=== PATIENT | male | born 2005 | race Caucasian/White ===

== ENCOUNTER 2025-03-30 11:57 | Emergency (ER) | payer OTHER, SELFPAY ==
[2025-03-30 12:21] VITALS: BP 166/113; PULSE 85; RESP 18; TEMP 36.6; O2SAT 100; BMI 21.7
[2025-03-30 12:36] LABS: Microscopic, Urine URINE MICROSCOPIC (MICROSCOPIC)
[2025-03-30 12:40] LABS: Appearance,Urine CLEAR (Clear); Blood, Urine Negative (Negative); Color,Urine YELLOW (Yellow); Glucose,Urine (UA) Negative (Negative); Ketones,Urine 2+ (Negative); Leukocyte Esterase,Urine Negative (Negative); Nitrate,Urine Negative (Negative); Protein,Urine Negative (Negative); Urobilinogen,Urine 0.2 EU/dl (0.2)
[2025-03-30 12:49] LABS: Bilirubin,Urine 1+ (Negative)
[2025-03-30 13:00] LABS: Bacteria,Urine Trace /lpf
--- NOTE | 2025-03-30 13:01 | [facility].EDGENADL ---
Discharge Plan Disposition Patient Disposition: Home, Self-Care Condition: Good Referrals Follow up/Referrals: Mir Martin PA [Primary Care Provider] - See instructions Rashid Carrillo II, MD [Staff Physician] - See instructions Jeffery Fernandez MD [Staff Physician] - See instructions Activity Restrictions/Add. Instructions Additional Instructions/Restrictions: As we discussed we were unable to identify any serious or life-threatening condition today to explain your symptoms. I recommend close follow-up with your PCP for further workup. I have recommended both gastroenterology as well as cardiology physicians. You may call for your appointment. If you have any persistent new or worsening signs or symptoms follow-up with your PCP or return to the ER as needed. Clinical Impressions Clinical Impression: Chest pain, Abdominal pain, Unintended weight loss Stand Alone Forms Stand Alone Forms: Work/School Release Instructions Patient Instructions: DI for Acute Abdominal Pain Print Language Print Language: [place] Discharge ED Provider: Taran Kaufman Adult HPI <ENA Smith - Last Filed: 03/30/25 21:09> General Chief complaint: Abdominal Pain Stated complaint: Severe abd. pain, weight loss Time Seen by Provider: 03/30/25 13:01 Mode of Arrival: Ambulatory Source of Information: Patient Description of Symptoms (Recalled from ER Triage Doc. by RN): Pt presents for evaluation of multiple complaints. Pt states he has had right side to mid abdominal pain, nausea, extreme fatigue, and weight loss. Pt states he has lost over 60-70# in 2 months. Pt states he has been having constipation History of Present Illness HPI narrative: Patient presents for evaluation of chest pain abdominal pain and unintentional weight loss. Patient states that he has had lower mid chest pain for the last 3 days along with abdominal pain for the last month. Additionally patient states that he is lost 60 to 70 pounds in 1 to 2 months. He has a referral to gastroenterology and with his PCP but has not yet seen them for these problems. Patient states his abdominal pain is similar to when he had a gallbladder attack but is without gallbladder now as he has had a cholecystectomy. He denies any shortness of breath fever chills hemoptysis hematochezia melena nausea vomiting or diarrhea hematuria dysuria. He his no chronic medical conditions and is on no home medicines does not take any [id number] medications. Related Data Allergies Allergy/AdvReac Type Severity Reaction Status Date / Time amoxicillin Allergy Anaphylaxis Verified 03/30/25 12:26 [facility] <ENA Smith - Last Filed: 03/30/25 21:09> [facility] Disclaimer: The information contained in this section may have been updated after the patient was seen, as this information can be updated by other users. Social History Smoking Status: Current every day smoker alcohol intake: never current occupational status: employed Travel in the last 8 weeks?: None <ENA Smith - Last Filed: 03/30/25 21:09> ROS Obtained: Yes Systems reviewed as appropriate & no additional complaints except as documented Physical Exam <ENA Smith - Last Filed: 03/30/25 21:09> General General appearance: alert and in no apparent distress Respiratory Respiratory exam: Present normal lung sounds bilaterally Cardiovascular Cardiovascular exam: Present regular rate Neurological Exam Neurological exam: Present alert and oriented X3 Medical Decision Making <ENA Smith - Last Filed: 03/30/25 21:09> Medical Records Medical records reviewed: Yes I reviewed the patient's medical records. Screening: Per USPSTF and CDC recommendations, given the prevalence of disease in our region, it is our hospital?s policy to screen for HIV and viral Hepatitis for all patients aged 18 and over and those with ongoing risk factors. Richard Inquiry Pt receiving controlled substance: No Vital Signs: 03/30/25 12:21 03/30/25 15:38 Temperature 98 F 98.3 F Temperature Source Temporal Artery Scan Oral Pulse Rate 61 Pulse Rate [Right] 85 Respiratory Rate 18 16 Blood Pressure 140/79 Blood Pressure [Right Arm] 166/113 H Blood Pressure Mean [Right Arm] 130 Blood Pressure Source Automatic Cuff Blood Pressure Source [Right Arm] Automatic Cuff Blood Pressure Position Sitting Blood Pressure Position [Right Arm] Sitting 02 Sat by Pulse Oximetry 100 Oxygen Delivery Method Room Air Room Air Lab Data Lab results reviewed: Yes I reviewed the patient's lab results. Lab Results 03/30/25 12:32: Urine Color Yellow, Urine Appearance Clear, Urine pH 6.0, Ur Specific [place] 1.020, Urine Protein Negative, Urine Glucose (UA) Negative, Urine Ketones 2+, Urine Blood Negative, Urine Nitrate Negative, Urine Bilirubin 1+ A, Urine Urobilinogen 0.2, Ur Leukocyte Esterase Negative, Urine RBC None, Urine WBC None, Ur Squamous Epith Cells None, Urine Bacteria Trace 03/30/25 13:50: WBC 11.0, RBC 5.78, Hgb 17.0, Hct 47.4, MCV 82.0, MCH 29.4, MCHC 35.9 H, RDW 11.9, Plt Count 278, MPV 9.7, Neut % (Auto) 78.4, Lymph % (Auto) 14.2, [place] % (Auto) 5.2, Eos % (Auto) 1.4, Baso % (Auto) 0.5, Neut # (Auto) 8.6 H, Lymph # (Auto) 1.6, [place] # (Auto) 0.6, Eos # (Auto) 0.2, Baso # (Auto) 0.1, ESR 3, Sodium 138, Potassium 3.6, Chloride 105, Carbon Dioxide 27, Anion Gap 9.6, BUN 12, Creatinine 1.00, Estimated Creat Clear 115, Estimated GFR 96, Est GFR ( Amer) 116, Glucose 106 H, Calcium 9.8, Magnesium 2.5 H, Total Bilirubin 3.8 H, AST 28, ALT 30, Alkaline Phosphatase 75, Troponin I < 0.01, C-Reactive Protein 80.4 H, Total Protein 7.7, Albumin 4.9, Globulin 2.8, Albumin/Globulin Ratio 1.8, Lipase 66, Procalcitonin 0.151, TSH 0.57, Free T4 Index 3.1 L, Thyroxine (T4) 8.8, T3 Uptake 35 03/30/25 13:50 03/30/25 13:50 Orders (Tests/Meds): ED MEDICATIONS Discontinued Medications Generic Name Dose Route Start Last Admin Trade Name Freq PRN Reason Stop Dose Admin Iopamidol 75 ml 03/30/25 14:27 03/30/25 14:27 Iopamidol-370 (76%);100ml Bottle IV 03/30/25 14:28 75 ml ONCE ONE Administration Sodium Chloride 10 ml 03/30/25 14:27 03/30/25 14:27 Sodium Chloride 0.9% 10ml Syr (Rad Only) IV 03/30/25 14:28 10 ml ONCE ONE Administration ORDERS Category Date Time Status CT abdomen pelvis w con Stat Cat Scan 03/30/25 13:21 Completed CBC w/Auto Diff [Complete Blood Count Auto Diff] Stat Lab 03/30/25 13:50 Completed CMP [Comprehensive Metabolic Panel] Stat Lab 03/30/25 13:50 Completed CRP [C-Reactive Protein] Stat Lab 03/30/25 13:50 Completed ESR [Erythrocyte Sedimentation Rate] Stat Lab 03/30/25 13:50 Completed Lipase Stat Lab 03/30/25 13:50 Completed Magnesium Stat Lab 03/30/25 13:50 Completed Procalcitonin Stat Lab 03/30/25 13:50 Completed Thyroid Panel Stat Lab 03/30/25 13:50 Completed Trop I [Troponin I] Stat Lab 03/30/25 13:50 Completed Urinalysis and Microscopic Stat Lab 03/30/25 12:32 Completed Medical Decision Narrative: In summary patient is a 19-year-old male who presents to the emergency department for evaluation of 3 days of chest pain and 1 month of abdominal pain and unintentional weight loss. Patient is hemodynamically stable with a blood pressure 166/113 heart rate 85 normal sinus rhythm on bedside monitor breathing 18 times a minute satting at 100% room air upon arrival, afebrile at 98. Physical exam is remarkable for a well-nourished well-developed 19-year-old gentleman who currently is in no acute distress. Breath sounds clear and equal bilateral to the bases without a tissue sounds cardiovascular S1-S2 regular rate and rhythm without murmurs gallops rubs or thrills. Abdomen soft with mild tenderness in the right upper quadrant but no rebound or guarding no rigidity masses on palpation. Bowel sounds normal active.. Differential diagnosis includes ACS versus bowel obstruction versus pancreatitis versus constipation versus gastroenteritis versus blood dyscrasia versus neoplastic process etc. Initial workup will be conducted with hematologic labs twelve-lead EKG CT scan abdomen pelvis. Initial interventions include would include crystalloid bolus intolerant on Toradol however patient is hemodynamically stable thus bolus deferred and patient has had Tylenol and ibuprofen today prior to arrival thus that is also deferred for now. Initial workup reviewed by me and his hematologic labs significant for normal white count normal H&H with no neutrophilic shift, chemistries significant for, magnesium of 2.5 and undetected troponin at 0.01 a CRP of 80.4 a sed rate of 3 bland urinalysis in my informal interpretation of his CT scan abdomen pelvis reveals no abnormal processes however patient does have a large stool burden but no bowel dilation or stranding or free air prior to radiology read. Please see final read for formal interpretation.. Upon repeat evaluation I had a shared decision making with the patient regarding his BOWENS and while we have diagnostic uncertainty as to his exact cause we revealed no serious or life-threatening conditions today. I offered referral to gastroenterology and cardiology however patient already has appointment scheduled and plans to keep those. He will follow-up closely with his PCP if he has continued new or worsening signs or symptoms or return to the ER as needed.. <Taran Kaufman MD - Last Filed: 03/30/25 23:29> Vital Signs: 03/30/25 12:21 03/30/25 15:38 Temperature 98 F 98.3 F Temperature Source Temporal Artery Scan Oral Pulse Rate 61 Pulse Rate [Right] 85 Respiratory Rate 18 16 Blood Pressure 140/79 Blood Pressure [Right Arm] 166/113 H Blood Pressure Mean [Right Arm] 130 Blood Pressure Source Automatic Cuff Blood Pressure Source [Right Arm] Automatic Cuff Blood Pressure Position Sitting Blood Pressure Position [Right Arm] Sitting 02 Sat by Pulse Oximetry 100 Oxygen Delivery Method Room Air Room Air Lab Data Lab Results 03/30/25 12:32: Urine Color Yellow, Urine Appearance Clear, Urine pH 6.0, Ur Specific [place] 1.020, Urine Protein Negative, Urine Glucose (UA) Negative, Urine Ketones 2+, Urine Blood Negative, Urine Nitrate Negative, Urine Bilirubin 1+ A, Urine Urobilinogen 0.2, Ur Leukocyte Esterase Negative, Urine RBC None, Urine WBC None, Ur Squamous Epith Cells None, Urine Bacteria Trace 03/30/25 13:50: WBC 11.0, RBC 5.78, Hgb 17.0, Hct 47.4, MCV 82.0, MCH 29.4, MCHC 35.9 H, RDW 11.9, Plt Count 278, MPV 9.7, Neut % (Auto) 78.4, Lymph % (Auto) 14.2, [place] % (Auto) 5.2, Eos % (Auto) 1.4, Baso % (Auto) 0.5, Neut # (Auto) 8.6 H, Lymph # (Auto) 1.6, [place] # (Auto) 0.6, Eos # (Auto) 0.2, Baso # (Auto) 0.1, ESR 3, Sodium 138, Potassium 3.6, Chloride 105, Carbon Dioxide 27, Anion Gap 9.6, BUN 12, Creatinine 1.00, Estimated Creat Clear 115, Estimated GFR 96, Est GFR ( Amer) 116, Glucose 106 H, Calcium 9.8, Magnesium 2.5 H, Total Bilirubin 3.8 H, AST 28, ALT 30, Alkaline Phosphatase 75, Troponin I < 0.01, C-Reactive Protein 80.4 H, Total Protein 7.7, Albumin 4.9, Globulin 2.8, Albumin/Globulin Ratio 1.8, Lipase 66, Procalcitonin 0.151, TSH 0.57, Free T4 Index 3.1 L, Thyroxine (T4) 8.8, T3 Uptake 35 Orders (Tests/Meds): ED MEDICATIONS Discontinued Medications Generic Name Dose Route Start Last Admin Trade Name Freq PRN Reason Stop Dose Admin Iopamidol 75 ml 03/30/25 14:27 03/30/25 14:27 Iopamidol-370 (76%);100ml Bottle IV 03/30/25 14:28 75 ml ONCE ONE Administration Sodium Chloride 10 ml 03/30/25 14:27 03/30/25 14:27 Sodium Chloride 0.9% 10ml Syr (Rad Only) IV 03/30/25 14:28 10 ml ONCE ONE Administration ORDERS Category Date Time Status CT abdomen pelvis w con Stat Cat Scan 03/30/25 13:21 Completed CBC w/Auto Diff [Complete Blood Count Auto Diff] Stat Lab 03/30/25 13:50 Completed CMP [Comprehensive Metabolic Panel] Stat Lab 03/30/25 13:50 Completed CRP [C-Reactive Protein] Stat Lab 03/30/25 13:50 Completed ESR [Erythrocyte Sedimentation Rate] Stat Lab 03/30/25 13:50 Completed Lipase Stat Lab 03/30/25 13:50 Completed Magnesium Stat Lab 03/30/25 13:50 Completed Procalcitonin Stat Lab 03/30/25 13:50 Completed Thyroid Panel Stat Lab 03/30/25 13:50 Completed Trop I [Troponin I] Stat Lab 03/30/25 13:50 Completed Urinalysis and Microscopic Stat Lab 03/30/25 12:32 Completed Medical Decision Narrative: In summary patient is a 19-year-old male who presents to the emergency department for evaluation of 3 days of chest pain and 1 month of abdominal pain and unintentional weight loss. Patient is hemodynamically stable with a blood pressure 166/113 heart rate 85 normal sinus rhythm on bedside monitor breathing 18 times a minute satting at 100% room air upon arrival, afebrile at 98. Physical exam is remarkable for a well-nourished well-developed 19-year-old gentleman who currently is in no acute distress. Breath sounds clear and equal bilateral to the bases without a tissue sounds cardiovascular S1-S2 regular rate and rhythm without murmurs gallops rubs or thrills. Abdomen soft with mild tenderness in the right upper quadrant but no rebound or guarding no rigidity masses on palpation. Bowel sounds normal active.. Differential diagnosis includes ACS versus bowel obstruction versus pancreatitis versus constipation versus gastroenteritis versus blood dyscrasia versus neoplastic process etc. Initial workup will be conducted with hematologic labs twelve-lead EKG CT scan abdomen pelvis. Initial interventions include would include crystalloid bolus intolerant on Toradol however patient is hemodynamically stable thus bolus deferred and patient has had Tylenol and ibuprofen today prior to arrival thus that is also deferred for now. Initial workup reviewed by me and his hematologic labs significant for normal white count normal H&H with no neutrophilic shift, chemistries significant for, magnesium of 2.5 and undetected troponin at 0.01 a CRP of 80.4 a sed rate of 3 bland urinalysis in my informal interpretation of his CT scan abdomen pelvis reveals no abnormal processes however patient does have a large stool burden but no bowel dilation or stranding or free air prior to radiology read. Please see final read for formal interpretation.. Upon repeat evaluation I had a shared decision making with the patient regarding his BOWENS and while we have diagnostic uncertainty as to his exact cause we revealed no serious or life-threatening conditions today. I offered referral to gastroenterology and cardiology however patient already has appointment scheduled and plans to keep those. He will follow-up closely with his PCP if he has continued new or worsening signs or symptoms or return to the ER as needed. I was consulted by the DANILO, and we discussed the complexity of the problems being addressed. I approve the treatment and management plan for this patient's care in the emergency department, thus performing a substantive portion of the medical decision making. Taran Kaufman MD Critical Care <ENA Smith - Last Filed: 03/30/25 21:09> Critical Care Time Critical Care Time: No
--- NOTE | 2025-03-30 13:21 | CT_ITS ---
FINAL REPORT TECHNIQUE: IV contrast enhanced exam This study was performed with techniques to keep radiation doses as low as reasonably achievable, (ALARA). Individualized dose reduction techniques using automated exposure control or adjustment of mA and/or kV according to the patient's size were employed. CLINICAL HISTORY: Abdominal pain and weight loss COMPARISON: None FINDINGS: CT ABDOMEN PELVIS WITH CONTRAST: Abdomen: The gallbladder has been surgically resected. Liver has an unremarkable CT appearance. The spleen, pancreas and adrenal glands are unremarkable. Kidneys show no mass or obstruction. No abdominal adenopathy is present. No bowel obstruction or fluid collection is seen. Pelvis: The appendix is normal in appearance. Pelvic bowel loops are unremarkable. No fluid collection or adenopathy is seen. No focal masses are identified. IMPRESSION: No acute findings, mass, or adenopathy. Reviewed, Interpreted and Dictated by Kanika Garcia MD Transcribed by Naima Eduardo Authenticated and . [facility]
[2025-03-30 14:05] LABS: Basophils # 0.1 K/mm3 (0-0.2); Basophils % 0.5 % (0.1-2.0); Eosinophils # 0.2 Kmm3 (0.0-0.4); Eosinophils % 1.4 % (0.1-12.0); Hematocrit 47.4 % (42.0-52.0); Immature Granulocytes # 0.03 10^3uL; Immature Granulocytes % 0.3 %; Lymphocytes # 1.6 K/mm3 (0.7-4.5); Lymphocytes % 14.2 % (10-50); Mean Corpuscular HGB Conc 35.9 g/dL (31.8-35.4); Mean Corpuscular Hemoglobin 29.4 pg (27.0-31.2); Mean Platelet Volume 9.7 fl (7.4-10.4); Monocytes # 0.6 K/mm3 (0.1-1.0); Monocytes % 5.2 % (1.7-9.3); Neutrophils # 8.6 K/mm3 (1.8-7.8); Neutrophils % 78.4 % (37.0-80.0); Nucleated Red Blood Cells # 0 10^3/uL; Nucleated Red Blood Cells % 0 %; Platelet Count 278 K/mm3 (142-424); Red Blood Count 5.78 M/mm3 (4.60-6.20); Red Cell Distribution Width 11.9 % (11.5-17.5); Red Cell Distribution Width-SD 35.1 fL
[2025-03-30 14:13] LABS: Albumin Level 4.9 g/dl (3.5-5.0); Chloride 105 mmol/L (98-107); Potassium 3.6 mmoL/L (3.5-5.1); Sodium 138 mmol/L (136-145)
[2025-03-30 14:16] LABS: Alanine Aminotransferase 30 U/L (12-78); Albumin/Globulin Ratio 1.8 (1.1-1.8); Alkaline Phosphatase 75 U/L (38-126); Anion Gap 9.6 mEq/L (5-15); Aspartate Amino Transferase 28 U/L (17-59); Bilirubin,Total 3.8 mg/dl (0.2-1.3); Blood Urea Nitrogen 12 mg/dl (9-20); Calcium 9.8 mg/dl (8.4-10.2); Carbon Dioxide 27 mmol/L (22.0-30.0); Creatinine Clearance Estimated 115 mL/min (50-200); Estimated Glomerular Filt Rate 96 ml/min (>60); GFR (African American) 116 ML/MIN (>60); Globulin 2.8 g/dL (1.3-3.2); Glucose 106 mg/dl (74-100); Lipase 66 U/L (23-300); Magnesium 2.5 mg/dl (1.6-2.3); Total Protein,Serum 7.7 g/dl (6.3-8.2)
[2025-03-30 14:22] LABS: C-Reactive Protein 80.4 mg/L (0-4)
[2025-03-30] MEDS: SODIUM CHLORIDE 0.9% 10ML SYR (RAD ONLY) 10 ML IV (14:27)
[2025-03-30] MEDS: IOPAMIDOL-370 (76%);100ML BOTTLE 75 ML IV (14:27)
[2025-03-30 14:33] LABS: Troponin I < 0.01 ng/ml (0.00-0.034)
[2025-03-30 14:40] LABS: Procalcitonin 0.151 ng/mL (0.0-2.0)
[2025-03-30 14:45] LABS: Erythrocyte Sedimentation Rate 3 mm/hr (0-15)
--- NOTE | 2025-03-30 15:09 | PC.NURSE ---
Duran SUTHERLAND at bedside.
[2025-03-30 15:38] VITALS: BP 140/79; PULSE 61; RESP 16; TEMP 36.8; O2SAT 100
[2025-03-30 16:47] LABS: Triiodothryronine (T3) Uptake 35 % (23.5-40.5)
[2025-03-30 16:48] LABS: Free Thyroxine Index 3.1 ug/dL (5.93-13.13); T4 (Thyroxine) 8.8 ug/dl (5.53-11.0)
[2025-03-30 17:01] LABS: Thyroid Stimulating Hormone 0.57 uIU/mL (0.465-4.68)
== END 2025-03-30 15:38 | disposition home or self-care (01) ==
PROVIDERS: Physician Assistant; Emergency Provider Student in an Organized Health Care Education/Training Program; PCP Physician Assistant
DX: R07.9 Chest pain, unspecified (principal); R10.11 Right upper quadrant pain; R63.4 Abnormal weight loss; F17.210 Nicotine dependence, cigarettes, uncomplicated
CPT/HCPCS: 74177; 80053; 81001; 83690; 83735; 84145; 84436; 84443; 84479; 84484; 85025; 85651; 86140; 99285; Q9967